=== PATIENT | male | born 1950 | race Caucasian/White ===

== ENCOUNTER 2018-10-29 05:46 | Inpatient (IN) | payer OTHER ==
[2018-10-29] VITALS (12 sets, daily range): BP systolic 105–147; BP diastolic 63–88
[~2018-10-29] VITALS: Ht 170.2 cm; Wt 124.3 kg
[~2018-10-29 05:46] MED LIST: ASPIR 8181 MG ORAL
[2018-10-29] MEDS ORDERED: LR 1000ml 1,000 ML IVLG SCH (06:20)
[2018-10-29] MEDS ORDERED: Ketorolac 30mg Inj IV PRN ×2 (06:30)
[2018-10-29] MEDS ORDERED: LORazepam Inj 2mg/ml 1ml IV PRN (06:30)
[2018-10-29] MEDS ORDERED: Metoclopramide 10mg/2ml Inj IVP PRN ×2 (06:30→11:00)
[2018-10-29] MEDS ORDERED: Midazolam 2mg/2ml Inj IVP PRN (06:30)
[2018-10-29] MEDS ORDERED: Acetaminophen (Non formulary) 100 ML IV ONE (06:30)
[2018-10-29] MEDS ORDERED: Hydromorphone 0.5mg/0.5ml inj IVP PRN (06:30)
[2018-10-29] MEDS ORDERED: DiphenhydrAMINE 50mg/ml Inj IVP PRN (06:30)
[2018-10-29] MEDS ORDERED: Norco 5mg/325mg tab ORAL PRN ×2 (06:30→11:00)
[2018-10-29] MEDS ORDERED: fentaNYL 100 mcg/2 mL IV PRN (06:30)
[2018-10-29] MEDS ORDERED: oxyCODONE HCL/Acetaminophen 5/325mg ORAL PRN (06:30)
[2018-10-29] MEDS ORDERED: Meperidine 50mg/ml Inj(FOR RIGORS ONLY) IVP PRN (06:30)
[2018-10-29] MEDS ORDERED: Atropine Sulfate 0.4mg/ml inj IVP PRN (06:30)
[2018-10-29] MEDS ORDERED: HYDROcodone/Acetamin 7.5/325 tab ORAL PRN ×2 (06:30→11:00)
--- NOTE | 2018-10-29 06:35 | NUR ---
IV LR WAS STARTED BY MAMIE JHAVERIOPS RN. NO S/S OF INFILTRATION.
[2018-10-29] MEDS ORDERED: LIPITOR10 MG ORAL (06:47)
[2018-10-29] MEDS ORDERED: METOPROLOL-HCT1 EAC1 ORAL (06:47)
[2018-10-29] MEDS ORDERED: Lidocaine 1% Plain 30 ml INJ ONE (06:50)
[2018-10-29] MEDS ORDERED: Bacitracin 50000 Units Vial ONE (07:00)
[2018-10-29] MEDS ORDERED: Bupivacaine w/Epi 0.5% 30ml Vial INJ ONE ×2 (07:00→08:26)
[2018-10-29] MEDS ORDERED: Thrombin 5000 units TOPIC ONE ×2 (07:00→07:01)
[2018-10-29] MEDS ORDERED: Gelfoam Size TOPIC ONE (07:00)
[2018-10-29] MEDS ORDERED: Vancomycin 1gm vial IVPB ONE (07:00)
--- NOTE | 2018-10-29 07:02 | NUR ---
CASE MANAGEMENT:REVIEW 68 YR OLD MALE HERE FOR ELECTIVE SURGERY SI: L5/S1 STENOSIS 98.0 64 20 107/66 96% ON RA IS: TO SURGERY IV DILAUDID PRN : TO MED/SURG 3 EAST POST OP INTERQUAL CRITERIA MET
[2018-10-29] MEDS ORDERED: Midazolam 2mg/2ml Inj ONE (07:06)
[2018-10-29] MEDS ORDERED: fentaNYL 100 mcg/2 mL IV ONE ×2 (07:06→09:54)
--- NOTE | 2018-10-29 07:24 | Pre-Procedure Note/Attestation ---
Pre-Procedure Note/Attestation Complete Prior to Procedure Procedure Narrative: Left L4-5 and Left L5-S1 microdecompression and microdiscectomy Indications for Procedure Pre-Operative Diagnosis: Lumbar radiculopathy Attestation I attest that I discussed the nature of the procedure; its benefits; risks and complications; and alternatives (and the risks and benefits of such alternatives ), prior to the procedure, with the patient (or the patient's legal eligibility services representative). I attest that, if there was a reasonable possibility of needing a blood transfusion, the patient (or the patient's legal eligibility services representative) was given the [facility] standardized written summary, pursuant to the Edilberto Faith Blood Safety Act ([place] Health and Safety Code # 1645, as amended). I attest that I re-evaluated the patient just prior to the surgery and that there has been no change in the patient's H&P, except as documented below: Harsh Mays MD Oct 29, 2018 07:24
[2018-10-29] MEDS ORDERED: Lidocaine 1% MPF 10mg/ml 5ml ONE ×2 (07:28→10:40)
[2018-10-29] MEDS ORDERED: LR 1000ml ONE (07:30)
[2018-10-29] MEDS ORDERED: Propofol 1,000mg/ 100ml btl IV ONE (07:30)
[2018-10-29] MEDS ORDERED: Dexamethasone 4mg/ml vial ONE (07:30)
--- NOTE | 2018-10-29 08:47 | Anethesia Preoperative Eval ---
Anesthesia Pre-op PMH/ROS General Date of Evaluation: Oct 29, 2018 Time of Evaluation: 07:23 Anesthesiologist: Anita ASA Score: ASA 3 Mallampati Score Class I : Soft palate, uvula, fauces, pillars visible Class II: Soft palate, uvula, fauces visible Class III: Soft palate, base of uvula visible Class IV: Only hard plate visible Mallampati Classification: Class III Surgeon: Tabatha Diagnosis: Back Pain Surgical Procedure: L L4-5, L5-S1 Microdiscectomy, Microdecompression Anesthesia History: none Social History: current smoker Family History: no anesthesia problems Allergies: Coded Allergies: PENICILLINS (Verified Allergy, Severe, 10/28/18) SEVERE HEADACHE AND HIGH FEVER Medications: see eMAR Patient NPO?: Yes NPO Date: Oct 28, 2018 NPO Time: 2100 Past Medical History Cardiovascular: Reports: HTN, CAD - Stent, CABG, Aortic Valve Replaced Other: obesity - Morbid BMI 43 PSxH Narrative: Cardiac Stent, CABG, Aortic Valve replaced Anesthesia Pre-op Phys. Exam Physician Exam Last Vital Signs Date Time Temp Pulse Resp B/P (MAP) Pulse Ox O2 Delivery O2 Flow Rate FiO2 10/29/18 06:39 98.0 64 20 107/66 (80) 96 10/29/18 06:23 Room Air Constitutional: NAD Neurologic: CN 2-12 intact Cardiovascular: RRR Respiratory: CTA Gastrointestinal: S/NT/ND Airway Exam Mallampati Score: Class III MO: full ROM: limited Teeth: intact Anesthesia Pre-op A/P Studies Pre-op Studies: echo - EF 68%-43% with Exertion Risk Assessment & Plan Assessment: ASA 3 Plan: GA, SED, GlideScope Go Status Change Before Surgery: No Pre-Antibiotics Dru Grams Ancef IV Given Within 1 Hr of Incision: Yes Time Given: 07:51 Raymundo Howard MD Oct 29, 2018 08:47
--- NOTE | 2018-10-29 08:48 | Immediate Post-Op Evaluation ---
Immediate Post-Op Evalulation Immediate Post-Op Evalulation Procedure: L L4-5, L5-S1 Microdiscectomy, Microdecompression Date of Evaluation: Oct 29, 2018 Time of Evaluation: 11:10 IV Fluids: 500 LR Blood Products: 0 Estimated Blood Loss: 50 Urinary Output: 200 Blood Pressure Systolic: 146 Blood Pressure Diastolic: 86 Pulse Rate: 80 Respiratory Rate: 16 O2 Sat by Pulse Oximetry: 100 Temperature (Fahrenheit): 98 Pain Score (1-10): 3 Nausea: No Vomiting: No Complications 0 Patient Status: awake, reacts, patent, extubated, none Hydration Status: adequate Dru Grams Ancef IV Given Within 1 Hr of Incision: Yes Time Given: 07:51 Raymundo Howard MD Oct 29, 2018 08:48
[2018-10-29] MEDS ORDERED: Glycopyrrolate 0.2mg/ml 1ml Vial ONE (10:30)
[2018-10-29] MEDS ORDERED: Neostigmine 1mg/ml 10ml Inj ONE (10:30)
--- NOTE | 2018-10-29 10:37 | Diagnostic Imaging Report ---
INDICATION: Pain, intraoperative TECHNIQUE: Intraoperative imaging Fluoroscopy time: 5.9 seconds Total dose: 0.73058 mGym2 Total number of images: 2 COMPARISON: None FINDINGS: Intraoperative images demonstrate surgical tool posterior to what is presumably the L5 segment. IMPRESSION: Intraoperative imaging, as described
[2018-10-29] MEDS ORDERED: Milk of Magnesia 30ml Ud ORAL PRN (11:00)
[2018-10-29] MEDS ORDERED: HYDROmorphone 1mg/ml Carpuject IVP PRN (11:00)
[2018-10-29] MEDS ORDERED: Naloxone 0.4mg/ml Inj IVP PRN (11:00)
[2018-10-29] MEDS ORDERED: HYDROmorphone 1mg/ml Carpuject SUBQ PRN (11:00)
--- NOTE | 2018-10-29 11:04 | Brief Operative Note ---
Immediate Post Operative Note Operative Note Pre-op Diagnosis: Lumbar radiculopathy Procedure: L L45 and L L5S1 microdecompression and microdiscectomy Post-op Diagnosis: same as pre-op Findings: consistent w/pre-op dx studies Surgeon: Tabatha Instrument Repairer Helper: Hali Anesthesiologist: Bc Anesthesia: general Specimen: yes Complications: none Condition: stable Fluids: 1000cc Estimated Blood Loss: minimal Drains: none Implant(s) used?: No Harsh Mays MD Oct 29, 2018 11:04
--- NOTE | 2018-10-29 12:15 | NUR ---
NURSE NOTES: Received patient awake alert and oriented via bed from PACU. IV site at right hand 20 gauge, infusing LR. at bedside. Oriented patient to room. Belongings accounted for. Call light within reach. In no apparent distress at this time. Will continue to monitor.
[2018-10-29] MEDS ORDERED: ceFAZolin sod 1 GM in D5W 55 ML IV SCH (14:00)
[2018-10-29] MEDS: D5 1/2NS 1,000 ML IV SCH ×2 (14:11→22:17)
--- NOTE | 2018-10-29 14:16 | 48 Hour Post Anesthesia Eval ---
Post Anesthesia Evaluation Procedure: L L4-5, L5-S1 Microdiscectomy, Microdecompression Date of Evaluation: Oct 29, 2018 Time of Evaluation: 14:15 Blood Pressure Systolic: 115 0: 72 Pulse Rate: 87 Respiratory Rate: 16 Temperature (Fahrenheit): 96.6 O2 Sat by Pulse Oximetry: 98 Airway: patent Nausea: No Vomiting: No Pain Intensity: 2 Hydration Status: adequate Cardiopulmonary Status: Stable Mental Status/LOC: patient returned to baseline Follow-up Care/Observations: 0 Post-Anesthesia Complications: 0 Follow-up care needed: N/A Raymundo Howard MD Oct 29, 2018 14:16
[2018-10-29] MEDS: HYDROcodone/Acetamin 7.5/325 tab ORAL PRN (15:26)
--- NOTE | 2018-10-29 15:53 | NUR ---
P.T Note: P.T evaluation completed and treatment initiated per spinal protocol. Please refer to P.T evaluation for current functional status. Pt is limited by pain in the lower back and slight dizziness from medications. CGA/SBA for bed mobility with emphasis on logroll tech, SBA X 1 for transfers and gait/ambulation activities. Skilled P.T service is warranted to ensure safety and compliance with spinal precautions in performing functional mobilities. Thank you for this referral.
[2018-10-29] MEDS: ceFAZolin sod 1 GM in D5W 55 ML IV SCH ×2 (17:34→23:27)
[2018-10-29] MEDS: Docusate 100mg cap ORAL SCH (17:36)
--- NOTE | 2018-10-29 19:48 | NUR ---
HAND-OFF: Report given to BRENDA Pressley.
--- NOTE | 2018-10-29 20:05 | NUR ---
NURSE NOTES: PATIENT IN BED, AWAKE, ALERT, VERBALLY RESPONSIVE. IV IN PLACE. HAS COMPLAINTS OF 8/10 PAIN, PAIN MEDICATION WILL BE GIVEN ORDERED. BED IN LOWEST POSITION, CALL LIGHT WITHIN REACH. WILL CONTINUE TO MONITOR.
[2018-10-30] MEDS: D5 1/2NS 1,000 ML IV SCH (02:54)
[2018-10-30 04:19] VITALS: BP 127/69
[2018-10-30] MEDS: HYDROcodone/Acetamin 7.5/325 tab ORAL PRN ×2 (04:29→10:22)
--- NOTE | 2018-10-30 04:59 | NUR ---
NURSE NOTES: PATIENT V/S STABLE, NO DISTRESS.
--- NOTE | 2018-10-30 07:41 | NUR ---
HAND-OFF: Report given to IGOR GILES RN.
--- NOTE | 2018-10-30 07:45 | NUR ---
NURSE NOTES: Received report from Wendie GUTIERREZ. Patient is awake alert and oriented during rounds, no acute distress. IVF running per order. Posterior dressing assessed c/d/i. Neuro check intact and patient reporting no numbness in extremities. Patient reporting pain in back, educated patient that I will medicate per order when pain medication due, patient in agreement. Patient updated on plan of care. Side rails upx3, bed low and locked, call light in reach. Will continue to monitor.
[2018-10-30 08:00] VITALS: BP 103/59
--- NOTE | 2018-10-30 08:06 | 48 Hour Post Anesthesia Eval ---
Post Anesthesia Evaluation Procedure: L L4-5, L5-S1 Microdiscectomy, Microdecompression Date of Evaluation: Oct 30, 2018 Time of Evaluation: 08:05 Blood Pressure Systolic: 124 0: 72 Pulse Rate: 68 Respiratory Rate: 20 Temperature (Fahrenheit): 97.6 O2 Sat by Pulse Oximetry: 98 Airway: patent Nausea: No Vomiting: No Pain Intensity: 2 Hydration Status: adequate Cardiopulmonary Status: stable Mental Status/LOC: patient returned to baseline Follow-up Care/Observations: n/a Post-Anesthesia Complications: none Follow-up care needed: N/A Nicolás Soto MD Oct 30, 2018 08:06
[2018-10-30] MEDS: ceFAZolin sod 1 GM in D5W 55 ML IV SCH (08:24)
--- NOTE | 2018-10-30 09:21 | NUR ---
CASE MANAGEMENT:REVIEW 10/30/18 SI: POD #1 S/P MICRODECOMPRESSION & MICRODISCECTOMY 97.8 85 18 127/69 94% ON RA IS: IVF@100/HR DILAUDID Q3HRS PRN NORCO PO Q3HRS PRN ; MED/SURG STATUS DCP: FROM HOME
[2018-10-30 10:18] VITALS: BP 112/64
[2018-10-30] MEDS: Docusate 100mg cap ORAL SCH (10:22)
[2018-10-30 12:00] VITALS: BP 135/82
--- NOTE | 2018-10-30 15:34 | General Progress Note ---
Subjective Constitutional: Reports: no symptoms HEENT: Reports: no symptoms Cardiovascular: Reports: no symptoms Respiratory: Reports: no symptoms Gastrointestinal/Abdominal: Reports: no symptoms Genitourinary: Reports: no symptoms Neurologic/Psychiatric: Reports: no symptoms Endocrine: Reports: no symptoms Hematologic/Lymphatic: Reports: no symptoms Allergies: Coded Allergies: PENICILLINS (Verified Allergy, Severe, 10/28/18) SEVERE HEADACHE AND HIGH FEVER Subjective Doing well post op. Min LBP. Leg pain resolved. ambulating and eating well. AVSS A and O times 3 dressing cdi 5/5 motor in the le slr is normal calves soft and nt A: Doing well on post op day 1 P: oob/pt raised tiolet seat dc today instructions for postop given follow up in 7 to ten days. Objective Last 24 Hour Vital Signs Date Time Temp Pulse Resp B/P (MAP) Pulse Ox O2 Delivery O2 Flow Rate FiO2 10/30/18 12:00 97.4 100 19 135/82 (99) 97 10/30/18 10:52 97.6 10/30/18 10:18 74 112/64 (80) 10/30/18 08:06 68 20 98 10/30/18 08:00 98.9 66 20 103/59 (74) 95 10/30/18 04:19 97.8 85 18 127/69 (88) 94 10/30/18 00:12 98.0 10/29/18 23:31 98.0 92 18 115/75 (88) 94 10/29/18 22:27 Room Air Room Air 10/29/18 20:02 99.2 96 18 108/63 (78) 94 10/29/18 16:00 97.5 85 16 105/65 (78) 93 Intake and Output 10/29/18 10/30/18 19:00 07:00 Intake Total 1690 ml 1195 ml Output Total 550 ml 500 ml Balance 1140 ml 695 ml Intake Oral 500 ml 240 ml IV Total 1190 ml 955 ml Output Urine Total 500 ml 500 ml Estimated Blood Loss 50 ml # Voids 2 Height (Feet): 5 Height (Inches): 7.00 Weight (Pounds): 274 Harsh Mays MD Oct 30, 2018 15:34
[2018-10-30] MEDS ORDERED: NORCO 10-325 T1 EACH ORAL (15:41)
[2018-10-30] MEDS ORDERED: NAPROXEN500 M2 ORAL (15:46)
[2018-10-30] MEDS ORDERED: CEPHALEXIN500 MG ORAL (15:48)
[2018-10-30 16:00] VITALS: BP 103/61
[2018-10-30] MEDS ORDERED: Tubing IV Secondary IV ONE (16:39)
[2018-10-30] MEDS ORDERED: D5 1/2NS 1000ml IV ONE (16:39)
--- NOTE | 2018-10-30 16:48 | NUR ---
NURSE NOTES: Patient discharged. No acute distress noted. VS assessed and stable. Patient given discharge instructions, Rx, and raised toilet seat per order. Patient reports understanding of all education provided. Patient given all belongings. IV removed intact. Escorted off unit via wheelchair to private vehicle at 1635 by JANITORIAL ASSISTANT. Accompanied by patient's who will drive patient home.
--- NOTE | 2018-10-30 20:30 | Operative Note - Dictated ---
DATE OF OPERATION: 10/29/2018 PREOPERATIVE DIAGNOSIS: L4-L5 and L5-S1 disk bulge with protrusion, stenosis and left lower extremity radiculopathy. POSTOPERATIVE DIAGNOSIS: L4-L5 and L5-S1 disk bulge with protrusion, stenosis and left lower extremity radiculopathy. PROCEDURES PERFORMED: 1. Left L4-L5 medial facetectomy, foraminotomy, and microdiskectomy. 2. Left L5-S1 medial facetectomy, foraminotomy, and microdiskectomy. 3. Intraoperative use of microscope. 4. Intraoperative use of fluoroscopy. SURGEON: Harsh Mays M.D. CLINICAL SERVICES CONSULTANT: Martin Lal M.D. ANESTHESIA: General endotracheal anesthesia. ANESTHESIOLOGIST: Raymundo Howard M.D. INTRAOPERATIVE FINDINGS: Disk bulge and protrusion at L5-S1 and L4-L5 with stenosis, impingement of the neural elements with foraminal stenosis at both levels, L4-L5 and L5-S1. ESTIMATED BLOOD LOSS: 50 mL. FLUIDS: 1 L crystalloid. INDICATIONS: A pleasant gentleman, who failed nonoperative treatment and option for above treatment was given. Risks, alternatives, and benefits were discussed with the patient at length. Risks include, but not limited to, anesthesia complications including , medical complications including liver, kidney, and cardiopulmonary deficits, bleeding, infection, dural tear, CSF leak, nerve root injury, pars fracture, instability, reherniation, as well as continued symptoms. DESCRIPTION OF OPERATION: The patient was brought into the operating room supine on a stretcher. Subsequently, appropriate IV lines were placed and 2 g of Ancef was administered. A surgical time-out was called. Anesthesia was induced and the patient was successfully intubated. Sequential compression devices were placed onto the bilateral lower extremities. A Mitchell was placed under sterile conditions. The patient was gently turned prone on to the Kofi frame table. All bony prominences were well padded and the abdomen was assured to lay freely. The L4-L5 and L5-S1 interspaces were positively identified preoperatively via fluoroscopy and radiopaque marker was which was used outside of the skin. The patient was prepped and draped in the usual sterile fashion with alcohol, chlorhexidine scrub, ChloraPrep, and Ioban draping. At this point, my certified physical therapist assistant and myself were prepped and gowned appropriately and the intraoperatively sterilely draped microscope was brought in for the case from skin incision to skin closure, and the microscope was used for microdissection of the neural elements during decompression. At this point, a scalpel was used to make a midline incision and with monopolar cautery, subperiosteal dissection was carried out to the L4-L5 and L5-S1 interspaces. The lateral facet joint capsule was well preserved, and a radiopaque marker was placed at the interspace and lateral fluoroscopy was taken and thus the L4-L5 and L5-S1 interspaces were positively identified. Attention was first diverted to the left L4-L5. With a high-speed drill, straight and curved curettes, #2 through #5 Kerrison punches a medial facetectomy was accomplished to the level of the cephalad portion of ligamentum flavum and a 4-0 curved curette was used to release the ligamentum flavum from the undersurface of the lamina and with a nerve hook the ligamentum flavum was gently peeled off of the common dural sac and with #2 through #5 Kerrison punches the ligamentum flavum was removed. The ligamentum flavum was found to be impinging on the neural elements and causing stenosis. The laminotomy was carried out to the L5, the cephalad portion of the L5 lamina and skeletonization of the L5 pedicle was done until the medial aspect of the superior articular facet was removed. At this point, the neural elements were carefully retracted with the Wallace 4 retractor and then with nerve root retractor. Epidural veins were coagulated with bipolar cautery, FloSeal, Gelfoam, thrombin, and once this was done, the disk space was found at L4-L5. There was a disk protrusion impinging on to the traversing neural element and also intraforaminally impinging on to the exiting L4 nerve root. With an #11 blade, a skin incision was made into the posterior anulus of the disc and with Leticia curette Deckers, German rongeur, pituitary rongeur, straight forward rongeurs, and Peapod, a microdiskectomy was carried out until all the impinging disc material was removed and the floor of the canal was flat. A central decompression was also done and at this point Valsalva 40 mmHg was done. There was no CSF leak. Irrigation of the disk space was done. All loose debris were removed. There was no further loose disk material and a complete decompression of the central canal, lateral recess of the foramina was verified. A Munguia ball was placed into the foramina and the foramina was found to be patent. Now, the Hand Drawer In Helper retractors, which were originally at the L4-L5 level were now moved to the L5-S1 level on the left side and in the same order with the same instruments, a medial facetectomy, removal of the ligamentum flavum, foraminotomy entailed. The superior edge of the S1 lamina was removed and with a Wallace retractor and a nerve root retractor, the neural elements were carefully medially retracted and a disk protrusion was found at L5-S1 causing impingement of the neural elements. There was intraforaminal component to the disk protrusion, which was impinging on the exiting nerve root. An #11 blade was used to make a slit incision in the posterior annulus and with a German rongeur, pituitary rongeur, straight forward rongeurs, and Leticia a diskectomy was carried out. All disk material was removed. Microscope was used for microdissection. The floor of the canal at this point was flat and the lateral recess and foraminal regions were patent and Munguia ball was used into the foramina and was found to be patent. Valsalva 40 mmHg was done. There was no CSF leak. The lateral recess and the foramina were decompressed and now attention was diverted to closure. The wound was copiously irrigated with triple antibiotic solution and the dorsal lumbar fascia was closed with #1 Vicryl suture in a watertight interrupted fashion. The subdermal and subcuticular layers were closed with 2-0 Vicryl. Skin was closed with Dermabond. Sterile dressing tape was placed. There were no complications during the case. All sponge, needle, and instrument counts were correct. The patient was turned supine, was extubated in stable condition, was taken to recovery room in stable condition, and was admitted to the hospital for monitoring. Harsh Mays M.D. DR: NABEEL JOB#: [id number] CC: TORITO
--- NOTE | 2018-11-02 14:22 | Discharge Summary ---
Discharge Summary Hospital Course Date of Admission Oct 29, 2018 at 05:46 Date of Discharge Oct 30, 2018 at 16:40 Admitting Diagnosis LUMBAR STENOSIS AND LEFT LOWER EXTREMITY RADICULOPATHY Reason for Hospitalization: elective surgery HPI Marito Pinto is a 68 year old male who was admitted on Oct 29, 2018 at 05:46 for L5/S1 Stenosis amd LLE radiculopathy. Patient was admitted for elective surgery . Procedures s/p 10/[address]ays 1. Left L4-L5 medial facetectomy, foraminotomy, and microdiskectomy. 2. Left L5-S1 medial facetectomy, foraminotomy, and microdiskectomy. 3. Intraoperative use of microscope. 4. Intraoperative use of fluoroscopy. Hospital Course status post surgery course of recovery uneventful initially IV fluids s/p perioperative antibiotics neurovascular status closely monitored, stable incision clean , dry and intact with dressing pain management addressed pain controlled hemodynamically stable ambulated with PT DVT prophylaxis provided use of incentive spirometry was encouraged while in the bed fall precautions maintained; safe for ambulation tolerated diet , IV fluids discontinued GI prophylaxis provided antiemetics were on board as needed voided freely bowel regimen instituted patient was stable for discharge discharge instructions provided raised toilet seat follow up with surgeon in7-10 days FINAL DIAGNOSES L4-L5 and L5-S1 disk bulge with protrusion, stenosis and left lower extremity radiculopathy s/p L L45 and L L5S1 microdecompression and microdiscectomy Discharge Medications Continued Medications: Aspirin* (Aspir 81*) 81 Mg Tablet.dr 81 MG ORAL DAILY, TAB (This prescription has been renewed) Atorvastatin Calcium* (Lipitor*) 10 Mg Tablet 10 MG ORAL DAILY, #30 TAB 0 Refills (This prescription has been renewed) Cephalexin* (Keflex*) 500 Mg Capsule 500 MG ORAL EVERY 6 HOURS for 5 Days, #20 CAP (This prescription has been renewed) New Prescription Hydrocodone Bit/Acetaminophen 10-325* ([place] 10-325*) 1 Each Tablet 1 TAB ORAL Q6H PRN for For Pain, #50 TAB 0 Refills (This prescription has been renewed) New Prescription Metoprolol/Hydrochlorothiazide (Metoprolol-Hctz 100-25 Mg Tab) 1 Each Tablet 1 TAB ORAL DAILY, TAB (This prescription has been renewed) Naproxen* (Naproxen*) 500 Mg Tablet 500 MG ORAL BID PRN for For Pain, #50 TAB (This prescription has been renewed) New Prescription Discharge Discharge Disposition Patient was discharged to Home (01) Discharge Instructions Discharge Instructions Special Instructions I have been assigned to complete a D/C Summary on this account. I was not involved in the patient management Ceci Velez NP Nov 02, 2018 14:22
== END 2018-10-30 16:40 | disposition home or self-care (01) | DRG 519 ==
LOC: SDSOVERFLO 05:46 → 3E 12:15
PROC: 0SB40ZZ Excision of Lumbosacral Disc, Open Approach (ICD-10-PCS; principal; 2018-10-29 07:30)
PROC: 01NB0ZZ Release Lumbar Nerve, Open Approach (ICD-10-PCS; principal; 2018-10-29 07:30)
PROC: 0SB20ZZ Excision of Lumbar Vertebral Disc, Open Approach (ICD-10-PCS; principal; 2018-10-29 07:30)
DX: M51.16 Intervertebral disc disorders with radiculopathy, lumbar region (principal); Z68.41 Body mass index [BMI] 40.0-44.9, adult; M51.17 Intervertebral disc disorders with radiculopathy, lumbosacral region; M48.061 Spinal stenosis, lumbar region without neurogenic claudication; E66.9 Obesity, unspecified; F17.200 Nicotine dependence, unspecified, uncomplicated; Z95.1 Presence of aortocoronary bypass graft; Z95.2 Presence of prosthetic heart valve; I10 Essential (primary) hypertension; Z95.5 Presence of coronary angioplasty implant and graft; Z88.0 Allergy status to penicillin
CPT/HCPCS: 36415; 51702; 72020; 76000; 86850; 86900; 86901; 87081; 94003; 94150; 96360; 96361; 96374; J2250; J2405; J2710